=== PATIENT | female | born 1945 | race Caucasian/White ===

== ENCOUNTER → 2021-05-20 | Outpatient (CLI) | payer MEDICARE, OTHER ==
[~2021-05-20] MED LIST: ALDACTONE25 MG PO; ELIQUIS 5 MG TAB5 MG PO; FLUZONE QU60 MCG/015 IM; HYDROXYZINE HCL25 MG PO; LASIX 40 MG TAB40 MG PO; LOPRESSOR 25 MG25 MG PO; NEXIUM40 MG PO; NORCO 5-325 TA1 EACH PO; TAMBOCOR 100 M100 MG PO; ZESTRIL40 MG PO
== END ==
LOC: SLEEP-COR 08:43
DX: G47.33 Obstructive sleep apnea (adult) (pediatric) (principal); I48.0 Paroxysmal atrial fibrillation
CPT/HCPCS: 95810